=== PATIENT | female | born 1955 | race African-American/Black ===

== ENCOUNTER 2020-05-26 08:49 | Inpatient (IN) ==
[2020-05-26 09:56] LABS: Basophils % 0.3 % (0.0-0.8); Eosinophils # 0.2 10*3/uL (0.0-0.87); Eosinophils % 1.5 % (0.00-10.9); Hematocrit 35.7 VOL% (35.7-47.0); Hemoglobin 11.7 GM/DL (12.0-16.0); Immature Granulocytes % 0.4 %; Immature Granulocytes Absolute 0.04 #; Lymphocytes # 1.7 10*3/uL (1.4-4.0); Lymphocytes % 16.9 % (21.3-54.2); Mean Corpuscular HGB Conc 32.8 GM/DL (32-36); Mean Corpuscular Volume 83.2 FL (87-102); Mean Platelet Volume 10.6 FL (9.6-12.0); Monocytes % 4.5 % (1.7-12.7); Neutrophils % 76.4 % (38.7-73.9); Platelet Count 335 T/CUMM (130-400); Red Blood Count 4.29 MC/CUMM (3.8-5.5); Red Cell Distribution Width 13.2 % (9.3-17.3)
[2020-05-26 10:09] LABS: PT Patient Result 10.3 SECS (9.8-11.9); Partial Thromboplastin Time 25.6 SECS (23.9-33.8)
[2020-05-26 10:12] LABS: Alanine Aminotransferase 11 U/L (13-56); Albumin 3.9 G/DL (3.4-5.0); Alkaline Phosphatase 161 U/L (45-117); Aspartate Amino Transferase 7 U/L (0-37); Blood Urea Nitrogen 11 MG/DL (7-18); Calcium 10.7 MG/DL (8.5-10.1); Estimated Glom Filtration Rate 75 ML/MIN; Glucose 146 MG/DL (74-106); Osmolality,Calculated 276.7 MOS/KG (273-304); Total Protein 8.3 G/DL (6.4-8.3)
[2020-05-26 10:40] LABS: Barbiturates Screen,Urine Negative (Negative); Benzodiazepines Screen,Urine Negative (Negative); Cannabinoid Screen,Urine Negative (Negative); Opiate Screen,Urine Negative (Negative); Phencyclidine Screen,Urine Negative (Negative)
[2020-05-26 10:41] LABS: Apearance,Urine Slightly Hazy (Clear); Bacteria,Urine Few /HPF (Few); Bilirubin,Urine Negative (Negative); Blood, Urine Negative (Negative); Glucose,Urine (UA) Negative (Negative); Hyaline Casts,Urine 3 /LPF (0-3); Ketones,Urine Negative (Negative); Mucus,Urine Occasional /LPF (Occasional); Nitrite,Urine Positive (Negative); Protein,Urine Negative; RBC,Urine 1 /HPF (0-4); Urine Color Yellow (Yellow); Urine Specific Gravity 1.011 (1.001-1.035); Urine Urobilinogen < 2.0 EU/DL (0.2-1.0); WBC,Urine 4 /HPF (0-6)
[2020-05-26 10:46] LABS: Platelet Estimate Normal
[2020-05-26 10:47] LABS: Anisocytosis 1+
[2020-05-26] MEDS ORDERED: cefTRIAXone 1,000 MG in SODIUM CHLORIDE 0.9% 100 ML IV STA (11:13)
[2020-05-26] MEDS ORDERED: ACETAMINOPHEN 325 MG TABLET PO PRN (11:18)
[2020-05-26] MEDS ORDERED: GLUCAGON 1 MG VIAL IM PRN (11:18)
[2020-05-26] MEDS ORDERED: ONDANSETRON 4 MG/2 ML VIAL IV PRN (11:18)
[2020-05-26] MEDS ORDERED: DEXTROSE 50% 25 GM/50 ML VIAL IV PRN (11:18)
[2020-05-26] MEDS ORDERED: MAGNESIUM SULF RIDER 2 GM in PREMIX 1 EACH IV PRN (15:22)
[2020-05-26] MEDS ORDERED: MAGNESIUM SULF RIDER 4 GM in PREMIX 1 EACH IV PRN (15:22)
[2020-05-26] MEDS ORDERED: hydrALAZINE 20 MG/1 ML VIAL IV PRN (15:23)
[2020-05-26] MEDS: INSULIN REGULAR 100 UNIT/ML SUBCUT SCH ×2 (16:25→21:06)
[2020-05-26] MEDS: carvediloL 12.5 MG TABLET PO SCH (21:06)
[2020-05-26] MEDS: DOCUSATE SODIUM 100 MG CAPSULE PO SCH (21:06)
[2020-05-27 05:35] LABS: Basophils % 0.6 % (0.0-0.8); Eosinophils # 0.1 10*3/uL (0.0-0.87); Hematocrit 35.3 VOL% (35.7-47.0); Hemoglobin 11.7 GM/DL (12.0-16.0); Immature Granulocytes % 0.3 %; Immature Granulocytes Absolute 0.02 #; Lymphocytes # 1.8 10*3/uL (1.4-4.0); Lymphocytes % 25.3 % (21.3-54.2); Mean Corpuscular HGB Conc 33.1 GM/DL (32-36); Mean Corpuscular Volume 81.3 FL (87-102); Mean Platelet Volume 10.8 FL (9.6-12.0); Monocytes % 8.5 % (1.7-12.7); Neutrophils % 64.3 % (38.7-73.9); Platelet Count 336 T/CUMM (130-400); Red Blood Count 4.34 MC/CUMM (3.8-5.5); Red Cell Distribution Width 12.9 % (9.3-17.3); White Blood Count 7.3 T/CUMM (4-12)
[2020-05-27 06:13] LABS: Thyroid Stimulating Hormone 0.192 uIU/ml (0.358-3.74)
[2020-05-27 06:16] LABS: Albumin 3.9 G/DL (3.4-5.0); Bilirubin,Total 1.4 MG/DL (0.2-1.0); Osmolality,Calculated 276.7 MOS/KG (273-304); Total Protein 8.8 G/DL (6.4-8.3)
[2020-05-27] MEDS: POTASSIUM CHLORIDE RIDER 10 MEQ in PREMIX 1 EACH IV PRN ×5 (06:31→15:16)
[2020-05-27] MEDS: INSULIN REGULAR 100 UNIT/ML SUBCUT SCH ×4 (08:21→21:34)
[2020-05-27] MEDS ORDERED: hydroCHLOROthiazide 25 MG TABLET PO SCH (09:00)
[2020-05-27] MEDS: PANTOPRAZOLE 40 MG TABLET PO SCH (09:26)
[2020-05-27] MEDS: SERTRALINE 50 MG TABLET PO SCH (09:26)
[2020-05-27] MEDS: ATORVASTATIN 40 MG TABLET PO SCH (09:26)
[2020-05-27] MEDS: carvediloL 12.5 MG TABLET PO SCH (09:27)
[2020-05-27] MEDS: lisinopriL 20 MG TABLET PO SCH (09:27)
[2020-05-27] MEDS: DOCUSATE SODIUM 100 MG CAPSULE PO SCH ×2 (09:27→20:58)
[2020-05-27] MEDS: cefTRIAXone 1,000 MG in SYRINGE 1 EACH IV SCH (09:27)
[2020-05-27] MEDS: carvediloL 6.25 MG TABLET PO SCH (16:28)
[2020-05-28 05:24] LABS: Basophils % 0.4 % (0.0-0.8); Eosinophils # 0.2 10*3/uL (0.0-0.87); Eosinophils % 3.3 % (0.00-10.9); Hematocrit 34.8 VOL% (35.7-47.0); Hemoglobin 11.6 GM/DL (12.0-16.0); Immature Granulocytes % 0.4 %; Immature Granulocytes Absolute 0.03 #; Lymphocytes # 2.3 10*3/uL (1.4-4.0); Lymphocytes % 31.4 % (21.3-54.2); Mean Corpuscular HGB Conc 33.3 GM/DL (32-36); Mean Corpuscular Volume 81.1 FL (87-102); Mean Platelet Volume 10.7 FL (9.6-12.0); Monocytes % 11.2 % (1.7-12.7); Neutrophils % 53.3 % (38.7-73.9); Platelet Count 321 T/CUMM (130-400); Red Blood Count 4.29 MC/CUMM (3.8-5.5); Red Cell Distribution Width 13.1 % (9.3-17.3); White Blood Count 7.3 T/CUMM (4-12)
[2020-05-28 06:10] LABS: Calcium 10.9 MG/DL (8.5-10.1)
[2020-05-28] MEDS: POTASSIUM CHLORIDE 20 MEQ TABLET PO PRN ×4 (07:21→10:03)
[2020-05-28] MEDS: INSULIN REGULAR 100 UNIT/ML SUBCUT SCH ×4 (08:02→21:00)
[2020-05-28] MEDS: cefTRIAXone 1,000 MG in SYRINGE 1 EACH IV SCH (08:49)
[2020-05-28] MEDS: ATORVASTATIN 40 MG TABLET PO SCH (08:50)
[2020-05-28] MEDS: lisinopriL 20 MG TABLET PO SCH (08:50)
[2020-05-28] MEDS: DOCUSATE SODIUM 100 MG CAPSULE PO SCH ×2 (08:50→21:00)
[2020-05-28] MEDS: SERTRALINE 50 MG TABLET PO SCH (08:50)
[2020-05-28] MEDS: carvediloL 6.25 MG TABLET PO SCH ×2 (08:50→17:52)
[2020-05-28] MEDS: amLODIPine 5 MG TABLET PO SCH (08:50)
[2020-05-28] MEDS: PANTOPRAZOLE 40 MG TABLET PO SCH (08:51)
[2020-05-28] MEDS ORDERED: POTASSIUM CHLORIDE 20 MEQ TABLET PO ONE (10:02)
[2020-05-28] MEDS: POTASSIUM CHLORIDE 20 MEQ TABLET PO SCH (21:00)
[2020-05-28] MEDS ORDERED: LEVOFLOXACIN INJ 500 MG in PREMIX 1 EACH IV SCH (22:00)
[2020-05-29 06:08] LABS: Calcium 10.6 MG/DL (8.5-10.1); Osmolality,Calculated 276.7 MOS/KG (273-304)
[2020-05-29] MEDS: INSULIN REGULAR 100 UNIT/ML SUBCUT SCH ×4 (07:29→20:25)
[2020-05-29] MEDS: ATORVASTATIN 40 MG TABLET PO SCH (08:40)
[2020-05-29] MEDS: POTASSIUM CHLORIDE 20 MEQ TABLET PO SCH ×2 (08:40→20:25)
[2020-05-29] MEDS: DOCUSATE SODIUM 100 MG CAPSULE PO SCH ×2 (08:40→20:25)
[2020-05-29] MEDS: lisinopriL 20 MG TABLET PO SCH (08:40)
[2020-05-29] MEDS: PANTOPRAZOLE 40 MG TABLET PO SCH (08:40)
[2020-05-29] MEDS: amLODIPine 5 MG TABLET PO SCH (08:41)
[2020-05-29] MEDS: carvediloL 6.25 MG TABLET PO SCH ×2 (08:41→16:57)
[2020-05-29] MEDS: SERTRALINE 50 MG TABLET PO SCH (08:41)
[2020-05-29] MEDS: LEVOFLOXACIN INJ 500 MG in PREMIX 1 EACH IV SCH (08:41)
[2020-05-30] MEDS: INSULIN REGULAR 100 UNIT/ML SUBCUT SCH ×4 (07:24→20:30)
[2020-05-30] MEDS: amLODIPine 5 MG TABLET PO SCH (08:49)
[2020-05-30] MEDS: PANTOPRAZOLE 40 MG TABLET PO SCH (08:49)
[2020-05-30] MEDS: SERTRALINE 50 MG TABLET PO SCH (08:49)
[2020-05-30] MEDS: carvediloL 6.25 MG TABLET PO SCH ×2 (08:49→17:17)
[2020-05-30] MEDS: lisinopriL 20 MG TABLET PO SCH (08:49)
[2020-05-30] MEDS: DOCUSATE SODIUM 100 MG CAPSULE PO SCH ×2 (08:50→20:29)
[2020-05-30] MEDS: LEVOFLOXACIN INJ 500 MG in PREMIX 1 EACH IV SCH (08:50)
[2020-05-30] MEDS: ATORVASTATIN 40 MG TABLET PO SCH (08:50)
[2020-05-30] MEDS: POTASSIUM CHLORIDE 20 MEQ TABLET PO SCH ×2 (08:50→20:29)
[2020-05-30] MEDS ORDERED: LORazepam 2 MG/1 ML VIAL ONE (10:51)
[2020-05-31 06:54] LABS: Albumin 3.3 G/DL (3.4-5.0); Bilirubin,Total 0.6 MG/DL (0.2-1.0); Osmolality,Calculated 279.3 MOS/KG (273-304); Risk Ratio 3.33; Total Protein 7.4 G/DL (6.4-8.3); VLDL CHOLESTEROL 15.2 MG/DL
[2020-05-31] MEDS: INSULIN REGULAR 100 UNIT/ML SUBCUT SCH ×2 (07:47→11:25)
[2020-05-31] MEDS: lisinopriL 20 MG TABLET PO SCH (08:33)
[2020-05-31] MEDS: POTASSIUM CHLORIDE 20 MEQ TABLET PO SCH (08:33)
[2020-05-31] MEDS: PANTOPRAZOLE 40 MG TABLET PO SCH (08:33)
[2020-05-31] MEDS: DOCUSATE SODIUM 100 MG CAPSULE PO SCH (08:33)
[2020-05-31] MEDS: amLODIPine 5 MG TABLET PO SCH (08:33)
[2020-05-31] MEDS: SERTRALINE 50 MG TABLET PO SCH (08:34)
[2020-05-31] MEDS: carvediloL 6.25 MG TABLET PO SCH (08:34)
[2020-05-31] MEDS: LEVOFLOXACIN INJ 500 MG in PREMIX 1 EACH IV SCH (08:34)
[2020-05-31] MEDS: ATORVASTATIN 40 MG TABLET PO SCH (08:34)
[2020-05-31 15:11] VITALS: BP 129/73
== END 2020-05-31 15:51 | disposition home health service (06) | DRG 53 ==
LOC: N.ED 08:49 → N.EDINP 08:49 → N.TELEN 15:59
PROVIDERS: ADMIT Internal Medicine; ATTEND Internal Medicine